=== PATIENT | female | born 1990 | race Caucasian/White ===

== ENCOUNTER 2020-05-28 20:52 | Inpatient (IN) | payer OTHER, SELFPAY ==
[~2020-05-28] VITALS: Ht 170.2 cm; Wt 72.6 kg
[2020-05-28] MEDS ORDERED: LR 1,000 ML IV SCH (21:15)
[2020-05-28] MEDS ORDERED: LR 1,000 ML IV ONE (21:15)
[2020-05-28] MEDS ORDERED: TERBUTALINE SULFATE 1 MG/ML VIAL SUBCUT ONE (21:15)
[2020-05-28] MEDS ORDERED: OXYTOCIN/0.9 % SODIUM CHLORIDE 1,000 ML IV SCH (22:00)
[2020-05-28 22:13] LABS: BASOPHILS % (AUTO) 0.3 % (0.0-2.0); EOSINOPHILS # (AUTO) 0.1 K/uL (0.0-0.4); EOSINOPHILS % (AUTO) 1.5 % (0.0-4.0); HEMATOCRIT 30.7 % (36-48); HEMOGLOBIN 10.3 g/dL (12.0-16.0); LYMPHOCYTES # (AUTO) 1.4 K/uL (1.0-5.5); LYMPHOCYTES % (AUTO) 16.6 % (20.5-51.5); MEAN CORPUSCULAR HEMOGLOBIN 27 pg (27-31); MEAN CORPUSCULAR HGB CONC 34 % (32-36); MEAN CORPUSCULAR VOLUME 79 fL (79.0-98.0); MONOCYTES # (AUTO) 0.6 K/uL (0.0-1.0); MONOCYTES % (AUTO) 7.4 % (1.7-9.3); NEUTROPHILS # (AUTO) 6.4 K/uL (1.8-7.7); NEUTROPHILS % (AUTO) 74.2 % (40.0-70.0); PLATELET COUNT (AUTO) 252 K/uL (130-430); RED BLOOD CELL COUNT(AUTO) 3.89 MIL/uL (4.2-6.2); RED CELL DISTRIBUTION WIDTH 15.5 % (9.0-15.0); WHITE BLOOD COUNT (AUTO) 8.7 K/uL (4.8-10.8)
[2020-05-28] MEDS ORDERED: HYDROcodone/ACETAMIN 5-325 MG TAB (NORCO/ VICODIN) PO PRN (23:00)
[2020-05-28] MEDS ORDERED: OXYCODONE/ACETAMINOPHEN 5-325 TABLET PO PRN (23:00)
[2020-05-28] MEDS ORDERED: METHYLERGONOVINE MALEATE 0.2 MG/ML AMP IM ONE (23:18)
[2020-05-28] MEDS ORDERED: METHYLERGONOVINE MALEATE 0.2 MG/ML AMP ONE (23:18)
[2020-05-29] MEDS: IBUPROFEN 600 MG TABLET PO SCH ×3 (02:22→18:04)
[2020-05-29 03:18] VITALS: BP_SYST 120
[2020-05-29] MEDS ORDERED: DERMOPLAST SPRAY TP ONE (05:14)
[2020-05-29] MEDS ORDERED: WITCH HAZEL LEAF 1 MED.PAD MED.PAD TP ONE (05:14)
[2020-05-29 08:11] LABS: HEMATOCRIT 31.5 % (36-48); HEMOGLOBIN 10.4 g/dL (12.0-16.0)
[2020-05-29] MEDS ORDERED: METHYLERGONOVINE MALEATE 0.2 MG/ML AMP IM ONE (14:15)
[2020-05-30] MEDS: IBUPROFEN 600 MG TABLET PO SCH ×3 (00:03→12:02)
[2020-06-01 00:06] LABS: FTA-Ab (T PALLIDUM) Non Reactive (Non Reactive)
== END 2020-05-30 14:55 | disposition home or self-care (01) | DRG 560 ==
LOC: SPU 20:52
PROVIDERS: ADMIT Obstetrics & Gynecology; ATTEND Obstetrics & Gynecology
PROC: 10E0XZZ Delivery of Products of Conception, External Approach (ICD-10-PCS; principal; 2020-05-28)
DX: O77.0 Labor and delivery complicated by meconium in amniotic fluid (principal); O70.0 First degree perineal laceration during delivery; Z20.828 Contact with and (suspected) exposure to other viral communicable diseases; Z3A.39 39 weeks gestation of pregnancy; Z37.0 Single live birth
CPT/HCPCS: 36415; 76815; 85018-TC; 85025; 86592; 86780; 86886; 86900; 86901; J2210; J2590